=== PATIENT | male | born 1990 | race Caucasian/White ===

== ENCOUNTER 2022-08-12 11:20 | Emergency (ER) | payer OTHER ==
[2022-08-12 11:38] VITALS: BP 121/74; PULSE 66; RESP 20; TEMP 97.8; BMI 29.0
== END 2022-08-12 12:36 | disposition home or self-care (01) ==
LOC: JERFT 11:20
DX: K64.8 Other hemorrhoids (principal)
CPT/HCPCS: 99281-25

== ENCOUNTER 2023-03-29 17:06 | Emergency (ER) | payer OTHER ==
[2023-03-29 17:10] VITALS: BP 114/57; PULSE 82; RESP 18; TEMP 98; BMI 29.1
== END 2023-03-29 18:54 | disposition home or self-care (01) ==
LOC: JERFT 17:06
DX: M79.661 Pain in right lower leg (principal)
CPT/HCPCS: 99282-25

== ENCOUNTER 2023-07-06 05:25 | Emergency (ER) | payer OTHER ==
[2023-07-06 05:44] VITALS: BP 130/68; PULSE 74; RESP 20; TEMP 98.2; BMI 24.4
[2023-07-06] MEDS ORDERED: ACETAMINOPHEN 500 MG TABLET (FP) PO ONE (05:49)
[2023-07-06] MEDS ORDERED: LIDOCAINE 5% TOPICAL PATCH TP ONE (05:49)
[2023-07-06] MEDS ORDERED: LIDOCAINE 5% TOPICAL PATCH ONE (05:58)
[2023-07-06] MEDS ORDERED: ACETAMINOPHEN 500 MG TABLET (FP) ONE (05:58)
[2023-07-06] MEDS ORDERED: LIDOCAINE PATCH REMOVAL MC ONE (18:00)
== END 2023-07-06 06:45 | disposition home or self-care (01) ==
LOC: JER 05:25
DX: S46.311A Strain of muscle, fascia and tendon of triceps, right arm, initial encounter (principal); M65.221 Calcific tendinitis, right upper arm; X50.0XXA Overexertion from strenuous movement or load, initial encounter
CPT/HCPCS: 73070-TC-RT-FY; 99283-25

== ENCOUNTER 2024-07-02 09:54 | Emergency (ER) | payer OTHER ==
[2024-07-02 10:14] VITALS: BP 112/70; PULSE 70; RESP 16; TEMP 97.6; BMI 29.1
== END 2024-07-02 11:28 | disposition home or self-care (01) ==
LOC: JER 09:54
DX: M79.661 Pain in right lower leg (principal); M79.A21 Nontraumatic compartment syndrome of right lower extremity
CPT/HCPCS: 99283-25